=== PATIENT | female | born 1980 | race Caucasian/White ===

== ENCOUNTER → 2017-11-25 | Outpatient (CLI) | payer OTHER ==
[~2017-11-25] MED LIST: IBUP600 PO
== END ==
LOC: HPND 08:57
PROVIDERS: ATTEND Obstetrics & Gynecology
DX: O09.522 Supervision of elderly multigravida, second trimester (principal); B02.9 Zoster without complications; O44.02 Complete placenta previa NOS or without hemorrhage, second trimester
CPT/HCPCS: 76811

== ENCOUNTER → 2017-12-24 | Outpatient (CLI) | payer OTHER | LOC: HPND 07:44 | PROVIDERS: ATTEND Obstetrics & Gynecology | DX: O09.522 Supervision of elderly multigravida, second trimester (principal); O44.02 Complete placenta previa NOS or without hemorrhage, second trimester | CPT/HCPCS: 76816; 76817 ==

== ENCOUNTER → 2018-01-26 | Outpatient (CLI) | payer OTHER | LOC: HPND 14:59 | PROVIDERS: ATTEND Obstetrics & Gynecology | DX: O44.02 Complete placenta previa NOS or without hemorrhage, second trimester (principal) | CPT/HCPCS: 76816; 76817 ==

== ENCOUNTER 2018-04-24 04:39 | Inpatient (IN) ==
--- NOTE | 2018-04-24 06:52 | ED ---
History of Present Illness Primary Care Physician: No Primary Care Physician History of Present Illness: 38-year-old 2 para 1 at 39 weeks 3 days gestation who reported to the emergency room tonight complaining of vaginal bleeding. The patient states that she was awakened with a small amount of fluid coming from the vagina and thought her water might have broken but when she went to the restroom she realized this was blood. She passed a clot about the size of the palm of her hand. She has noticed no further significant bleeding. She denies abdominal pain and notes no persistent tightness of her uterus. Obstetrical history: She is followed by Dr. Perez. The was complicated by placenta previa which was resolved at 35 weeks gestation. She reports that she was 4 cm dilated in the office on . Review of Systems All other systems reviewed negative except as stated in HPI PMFSH - Medical / Surgical Hx Neg / Unobtainable Medical Problems Denied: Yes - Surgical History Surgical History: Surgical History (Last Updated 04/24/18 @ 06:48 by Rip Mariee MD) Hx of breast augmentation Medications and Allergies Allergies Allergy/AdvReac Type Severity Reaction Status Date / Time No Known Allergies Allergy Uncoded 07/01/15 14:45 Exam Vital signs: Vital Signs 04/24/18 05:03 04/24/18 05:10 Temperature 98.9 F Pulse Rate 76 73 Respiratory Rate 18 Blood Pressure 129/87 Narrative: GENERAL: Well-nourished, well-developed patient. SKIN: Warm and dry. HEAD: Normocephalic and atraumatic. EYES: No scleral icterus. No injection or drainage. ENT: No nasal drainage noted. Mucous membranes pink. Airway patent. NECK: Supple, trachea midline. No JVD. CARDIOVASCULAR: Regular rate and rhythm without murmurs, gallops, or rubs. RESPIRATORY: Breath sounds equal bilaterally. No accessory muscle use. ABDOMEN/GI: Abdomen soft, non-tender, bowel sounds present, no rebound, no guarding Gravid to [-] weeks size Fundal Height: [38-] GENITOURINARY: External Genitalia: intact and normal in appearance BUS glands: [Negative-] Cervix: [-] Dilatation: [3-] Effacement: [60-] Station: [-2-] Presentation: [vtx-] Membranes: [intact] Uterine Contractions: [Mild irregular] FHT's: Category: [-1] Baseline: [135-] Reactive: [-Yes] Variability: [Accelerations noted-] Decels: [-] EXTREMITIES: No cyanosis or edema. Fine petechial rash over both ankles. BACK: Nontender without obvious deformity. No CVA tenderness. NEUROLOGICAL: Awake and alert. Motor and sensory grossly within normal limits. Five out of 5 muscle strength in all muscle groups. Normal speech. Assessment and Plan - Plan Assessment: 38-year-old female term with vaginal bleeding Plan: I discussed this patient with Dr. Okeefe who agrees to admit the patient for augmentation. She is GBS positive and prophylaxis will be ordered as well. Discharge Plan - Discharge Disposition Patient Disposition: 30 Still Patient - Discharge Condition Condition: Good - Physicians Team ED Provider: Rip Mariee Primary Care Provider: Primary Care Physici,No - Discharge Instructions Print Language: [place]
[2018-04-24] MEDS ORDERED: fentaNYL Citrate Inj 100 MCG/2 ML Ampul IV.PUSH PRN ×2 (06:53)
[2018-04-24] MEDS ORDERED: Oxytocin 30 Units/500ml Premix 30 UNITS/500 ML BAG IV.SIG ONE (06:53)
[2018-04-24] MEDS ORDERED: Sodium Chlor 0.9% Inj 500 ML IV.SIG PRN (06:53)
[2018-04-24] MEDS ORDERED: Sod Chloride 0.9% Inj 1,000 ML IV.CONT PRN (06:53)
[2018-04-24] MEDS ORDERED: Naloxone Inj 0.4 MG/ML Vial IV.PUSH PRN ×2 (06:53→12:04)
[2018-04-24] MEDS ORDERED: Penicillin G Potassium Inj 5,000,000 UNIT in Sodium Chloride 0.9% Inj 100 ML IV.SIG ONE (06:53)
[2018-04-24] MEDS ORDERED: Oxytocin 30 Units/500ml Premix 30 UNITS/500 ML BAG IV.SIG PRN (06:58)
[2018-04-24] MEDS ORDERED: Citric Acid/Sodium Citrate Liq 30 ML UDC PO SCH (07:00)
[2018-04-24 07:22] LABS: Baso % (Auto) 0.5 % (0.0-2.0); Eos # (Auto) 0.1 th/mm3 (0.0-0.4); Eos % (Auto) 1.4 % (0.0-4.0); Hematocrit 32.5 % (35.0-46.0); Hemoglobin 11.3 gm/dL (11.6-15.3); Lymph # (Auto) 1.6 th/mm3 (1.0-4.8); Lymph % (Auto) 17.3 % (9.0-44.0); Mean Corpuscular HGB Conc 34.6 % (32.0-36.0); Mean Corpuscular Hemoglobin 30.2 pg (27.0-34.0); Mean Corpuscular Volume 87.3 fL (80.0-100.0); Mean Platelet Volume 9.9 fL (7.0-11.0); Mono # (Auto) 0.6 th/mm3 (0.0-0.9); Mono % (Auto) 5.9 % (0.0-8.0); Neut # (Auto) 7.1 th/mm3 (1.8-7.7); Neut % (Auto) 74.9 % (16.0-70.0); Platelet Count 160 th/mm3 (150-450); Red Blood Count 3.73 mil/mm3 (4.00-5.30); Red Cell Distribution Width 14.6 % (11.6-17.2); White Blood Count 9.4 th/mm3 (4.0-11.0)
[2018-04-24 08:00] LABS: Amphetamine Screen,Urine Neg (Neg); Barbiturate Screen,Urine Neg (Neg); Cannabinoid Screen,Urine Neg (Neg); Cocaine Screen,Urine Neg (Neg)
[2018-04-24 08:02] LABS: Opiate Screen,Urine Neg (Neg)
[2018-04-24 08:04] LABS: Bacteria,Urine Occasional /hpf; Bilirubin,Urine Negative (Negative); Clarity,Urine Hazy (Clear); Color,Urine Straw (Yellw/Straw); Glucose,Urine (UA) Negative (Negative); Leukocyte Esterase,Urine Large (Negative); Nitrite,Urine Negative (Negative); Specific Gravity,Urine 1.002 (1.002-1.035); Squamous Epithelial Cell,Urine 3 /hpf (0-5)
[2018-04-24 08:10] LABS: Eosinophils 2 % (0-4); Lymphocytes 10 % (9-44); Monocytes 4 % (0-8)
[2018-04-24 08:11] LABS: Platelet Estimate Normal (Normal); Platelet Morphology Normal (Normal); RBC Morphology Normal (Normal)
[2018-04-24] MEDS ORDERED: fentaNYL 2MCG-Bupiv 0.125% Epi 150 ML EPIDURAL ONE (09:44)
[2018-04-24] MEDS ORDERED: fentaNYL Citrate Inj 100 MCG/2 ML Ampul EPIDURAL ONE (10:19)
[2018-04-24] MEDS ORDERED: fentaNYL 2MCG-Bupiv 0.125% Epi 150 ML EPIDURAL PRN (10:30)
[2018-04-24] MEDS ORDERED: Penicillin G Potassium Inj 2,500,000 UNIT in Sodium Chlor 0.9% Inj 100 ML IV.SIG SCH (11:00)
[2018-04-24] MEDS ORDERED: Bupivacaine PF 0.25% Inj 10 ML Vial ONE (11:01)
[2018-04-24] MEDS ORDERED: Lidocaine PF 1% Inj 30 ML Vial ONE (11:50)
--- NOTE | 2018-04-24 12:03 | P.OBDELI ---
Weeks Gestation: 39 Artificial Rupture of Membrane: Yes Anesthesia: Epidural, Lidocaine local to perineum Episiotomy: none Vaginal Delivery: Normal Presentation: Occiput anterior Nuchal Cord: x2 Delayed Cord Clamping (45 sec): No Placenta: Spontaneous delivery, Intact, 3 vessel cord Laceration: Perineal, 1 deg Repair: Chromic interrupted, Chromic running Infant: Female
[2018-04-24] MEDS ORDERED: Witch Hazel 50%/Glyderin 12.5% 40 Pad Jar RECTAL PRN (12:04)
[2018-04-24] MEDS ORDERED: Acetaminophen 325 MG Tablet PO PRN (12:04)
[2018-04-24] MEDS ORDERED: Oxytocin 30 Units/500ml Premix 30 UNITS/500 ML BAG IV.CONT PRN (12:04)
[2018-04-24] MEDS ORDERED: Zolpidem Tartrate 5 MG Tablet PO PRN (12:04)
[2018-04-24] MEDS ORDERED: Bisacodyl 10 MG Supp RECTAL PRN (12:04)
[2018-04-24] MEDS ORDERED: Benzocaine 20% Top Spray 60 ML Can TOPICAL PRN (12:04)
[2018-04-24] MEDS ORDERED: Diphtheria/Tetanus/Pertussis Vaccine Inj 0.5 ML Syringe IM ONE (16:00)
[2018-04-24] MEDS ORDERED: Measles/Mumps/Rubella Vaccine Inj 0.5 ML Vial SQ ONE (16:00)
[2018-04-24] MEDS: Senna/Docusate Sodium 8.6/50 MG Tablet PO SCH (20:28)
--- NOTE | 2018-04-25 07:36 | P.PNOB ---
Subjective Post day: 1 Objective Vital Signs/I&O: Vital Signs 04/24/18 07:40 04/24/18 10:11 04/24/18 10:55 Temperature Pulse Rate 88 212 H 95 H Respiratory Rate 18 Blood Pressure 134/89 132/78 135/67 04/24/18 11:35 04/24/18 12:03 04/24/18 12:15 Temperature Pulse Rate 123 H 101 H Respiratory Rate 18 18 Blood Pressure 107/66 101/77 04/24/18 12:40 04/24/18 12:46 04/24/18 12:50 Temperature Pulse Rate 82 Respiratory Rate 18 18 Blood Pressure 121/78 04/24/18 13:10 04/24/18 14:00 04/24/18 20:00 Temperature 98.4 F 98.2 F Pulse Rate 81 67 68 Respiratory Rate 18 20 18 Blood Pressure 120/76 123/86 123/78 Intake & Output 04/24/18 04/25/18 04/25/18 18:59 06:59 18:59 Intake Total 1000 / 1000 Balance 1000 / 1000 Intake: IV 1000 / 1000 LR 1000 mL Inj 1,000 ML @ 125 1000 / 1000 mls/hr IV.CONT .Q8H [facility] Rx#: [id number] Result Diagrams: 04/24/18 06:25 Objective Remarks: GENERAL: Well-nourished, well-developed patient. CARDIOVASCULAR: Regular rate and rhythm without murmurs, gallops, or rubs. RESPIRATORY: Breath sounds equal bilaterally. No accessory muscle use. ABDOMEN/GI: Abdomen soft, non-tender. Fundus: Firm, non-tender at umbilicus. GENITOURINARY: Light to moderate bleeding. EXTREMITIES: No cyanosis or edema, non-tender, without signs of DVT. Medications and IVs: Active Medications Acetaminophen (Tylenol) 650 mg PO Q4H PRN PRN Reason: PAIN SCALE 1 TO 2 Al Hydroxide/Mg Hydroxide (Milk Of Magnesia Liq) 30 ml PO Q12H PRN PRN Reason: Mild Constipation Benzocaine (Americaine 20% [place]) 1 spray TOPICAL Q4H PRN PRN Reason: For Perineum Discomfort Last Admin: 04/24/18 15:51 Dose: 1 spray Bisacodyl (Dulcolax Supp) 10 mg RECTAL DAILY PRN PRN Reason: SEVERE CONSITIPATION Citric Acid/Sodium Citrate (Sodium Citrate/Citric Acid Liq) 30 ml PO [employer] [facility] Stop: 04/28/18 06:59 Ephedrine Sulfate (Ephedrine/Ns Syringe) 10 mg IV.PUSH UNSCH PRN PRN Reason: SEE LABEL COMMENTS Stop: 04/25/18 10:19 Fentanyl Citrate (Fentanyl Inj) 50 mcg IV.PUSH Q1H PRN PRN Reason: Pain Scale 3 - 5 Fentanyl Citrate (Fentanyl Inj) 100 mcg IV.PUSH Q1H PRN PRN Reason: PAIN SCALE 6 TO 10 Lactated Ringer's (Lr 1000 Ml Inj) 1,000 mls @ 125 mls/hr IV.CONT .Q8H [facility] Last Infusion: 04/24/18 14:02 Dose: Infused Lactated Ringer's (Lr 1000 Ml Inj) 1,000 mls @ 3,000 mls/hr IV.SIG UNSCH PRN PRN Reason: compromise or epidural Last Admin: 04/24/18 10:10 Dose: 3,000 mls/hr Sodium Chloride (Ns Inj) 500 mls @ 1,000 mls/hr IV.SIG UNSCH PRN PRN Reason: SEE LABEL COMMENTS Sodium Chloride (Ns Inj) 1,000 mls @ 100 mls/hr IV.CONT .Q10H PRN PRN Reason: SEE LABEL COMMENTS Oxytocin (Pitocin 30 Units/Ns 500 Ml Premix) 30 units in 500 mls @ 2 mls/hr IV.SIG TITRATE PRN; Protocol PRN Reason: For induction of labor Last Admin: 04/24/18 07:37 Dose: 2 milliunit/min, 2 mls/hr Fentanyl/Bupivacaine/Sodium Chlor (Fentanyl 2 Mcg-Bupiv 0.125% Epi) 150 mls @ 12 mls/hr EPIDURAL PRN PRN PRN Reason: for Labor Pain Oxytocin (Pitocin 30 Units/Ns 500 Ml Premix) 30 units in 500 mls @ 100 mls/hr IV.CONT UNSCH PRN PRN Reason: Heavy bleeding Ibuprofen (Motrin) 800 mg PO Q8H PRN PRN Reason: For Cramping Last Admin: 04/24/18 15:46 Dose: 800 mg Lactulose (Lactulose Liq) 30 ml PO DAILY PRN PRN Reason: SEVERE CONSITIPATION Lidocaine HCl (Xylocaine 1% Inj) 0.1 ml I-DERMAL PRN PRN PRN Reason: For IV start Stop: 04/27/18 06:52 Lidocaine HCl (Xylocaine 1% Inj) 10 ml INFILTRATN PRN PRN PRN Reason: For episiotomy repair Stop: 04/26/18 06:52 Mineral Oil (Muri-Lube Oil) 10 ml TOPICAL PRN PRN PRN Reason: PRN perineal massage Miscellaneous Information (Misc Information) 1 each OTHER UNSCH PRN PRN Reason: SEE LABEL COMMENTS Stop: 04/25/18 10:19 Miscellaneous Information (Misc Information) 1 each OTHER UNSCH PRN PRN Reason: SEE LABEL COMMENTS Stop: 04/25/18 10:19 Naloxone HCl (Narcan Inj) 0.1 mg IV.PUSH Q2M PRN PRN Reason: for opiate reversal Naloxone HCl (Narcan Inj) 0.1 mg IV.PUSH Q2M PRN PRN Reason: for opiate reversal Ondansetron HCl (Zofran Inj) 4 mg IV.PUSH Q6H PRN PRN Reason: NAUSEA OR VOMITING Ondansetron HCl (Zofran Odt) 4 mg PO Q6H PRN PRN Reason: NAUSEA OR VOMITING Oxycodone/Acetaminophen (Percocet 5/325 Mg) 1 tab PO Q4H PRN PRN Reason: PAIN SCALE 3 TO 5 Oxycodone/Acetaminophen (Percocet 5/325 Mg) 2 tab PO Q4H PRN PRN Reason: PAIN SCALE 6 TO 10 Senna/Docusate Sodium (Gretta-Colace) 1 tab PO BID JERROD Last Admin: 04/24/18 20:28 Dose: 1 tab Sennosides (Senokot) 17.2 mg PO Q12H PRN PRN Reason: Moderate Constipation Sodium Chloride (Ns Flush) 2 ml IV.FLUSH BID JERROD Sodium Chloride (Ns Flush) 2 ml IV.FLUSH PRN PRN PRN Reason: FLUSH AFTER USING IV ACCESS Witch Lilibeth/Glycerin (Tucks Pads) 1 applicatio RECTAL QID PRN PRN Reason: HEMORRHOIDS Last Admin: 04/24/18 15:51 Dose: 1 applicatio Zolpidem Tartrate (Ambien) 5 mg PO HS PRN PRN Reason: SLEEP Assessment and Plan - Plan PPD # 1 s/p , doing well, no co...routine care
[2018-04-25] MEDS: Senna/Docusate Sodium 8.6/50 MG Tablet PO SCH (16:18)
[2018-04-25 22:41] VITALS: RESP 18
[2018-04-26] MEDS: Senna/Docusate Sodium 8.6/50 MG Tablet PO SCH ×2 (07:36→09:02)
[2018-04-26 09:10] VITALS: BP 109/66; PULSE 67; TEMP 98.1
== END 2018-04-26 14:00 | disposition home or self-care (01) ==
LOC: HOBED 04:39 → H2E 06:41 → H1EA 07:05
PROVIDERS: ADMIT Obstetrics & Gynecology; ATTEND Obstetrics & Gynecology